=== PATIENT | male | born 1965 | race Caucasian/White ===

== ENCOUNTER 2018-11-01 00:47 | Emergency (ER) | payer BC ==
[2018-11-01] MEDS ORDERED: DIPHTH,PERTUSS(ACELL),TET TOX 0.5 ML DISP.SYRIN. VAX IM ONE ×2 (02:20→02:21)
[2018-11-01] MEDS ORDERED: HYDROcodon/IBUPROFEN 7.5/200MG 1 TAB TABLET ONE ×2 (02:20)
--- NOTE | 2018-11-01 05:51 | ED.ADGEN ---
Adult General Chief Complaint Chief Complaint ".. I was taking my dog out . Mark Anthony Arana.. it was not the dog fault.... .. and I slipped and landed really hard on this Lt. arm... It really idania tender and swollen..." HPI HPI Patient is a 53 year old male who presents with above history and complaints of fall and contusion to left forearm. Patient has obvious a significant hematoma to left forearm. Distal neurovascular intact. Avionics Technician is good. Capillary refill in fingers is equal to left hand. Pronation and supination does not elicit pain. Flexion at the elbow does not elicit pain. Patient denies any upper arm tenderness or other areas of injury other than abrasions to hands. Patient is not on any anticoagulants. Patient fall was at approximately 00 30 minutes. Patient is right-hand dominant. Patient normally healthy. Patient does not remember his last tetanus but is in excess of 10 years. Review of Systems Review of Systems Constitutional: Denies fever or chills [] Eyes: Denies change in visual acuity, redness, or eye pain [] HENT: Denies nasal congestion or sore throat [] Respiratory: Denies cough or shortness of breath [] Cardiovascular: No additional information not addressed in HPI [] GI: Denies abdominal pain, nausea, vomiting, bloody stools or diarrhea [] : Denies dysuria or hematuria [] Musculoskeletal: Denies back pain or joint pain []except findings in left forearm Integument: Denies rash or skin lesions [] Neurologic: Denies headache, focal weakness or sensory changes [] Endocrine: Denies polyuria or polydipsia [] All other systems were reviewed and found to be within normal limits, except as documented in this note. Family History Family History Noncontributory Current Medications Current Medications Current Medications Medications (Trade) Dose Ordered Sig/Megan Start Time Stop Time Status Last Admin Dose Admin Diphtheria/ Tetanus/Acell Pertussis (Boostrix) 0.5 ml STK-MED ONCE 11/01/18 02:20 11/01/18 04:53 DC Hydrocodone Bitartrate/ Ibuprofen (Vicoprofen 7.5-200) 1 tab STK-MED ONCE 11/01/18 02:20 11/01/18 04:53 DC Allergies Allergies No known drug allergies Physical Exam Physical Exam Constitutional: Well developed, well nourished, no acute distress, non-toxic appearance. [] HENT: Normocephalic, atraumatic, bilateral external ears normal, oropharynx moist, no oral exudates, nose normal. [] Eyes: PERRLA, EOMI, conjunctiva normal, no discharge. [] Neck: Normal range of motion, no tenderness, supple, no stridor. [] Cardiovascular:Heart rate regular rhythm, no murmur [] Lungs & Thorax: Bilateral breath sounds equal at apex on auscultation [] Abdomen: Bowel sounds normal, soft, no tenderness, no masses, no pulsatile masses. [] Skin: Warm, dry, no erythema, no rash. [] Back: No tenderness, no CVA tenderness. [] Extremities: No tenderness, no cyanosis, no clubbing, ROM intact, no edema. [] Except findings of contusion left forearm as per history of present illness Neurologic: Alert and oriented X 3, normal motor function, normal sensory function, no focal deficits noted. [] Psychologic: Affect anxious, judgement normal, mood normal. [] EKG EKG [] Radiology/Procedures Radiology/Procedures My interpretation of forearm x-ray shows no obvious fracture dislocation. Does have findings of soft tissue edema.[] Course & Med Decision Making Course & Med Decision Making Pertinent Labs and Imaging studies reviewed. (See chart for details). Patient to keep left forearm elevated. Ice packs as needed. No moist heat after 3 days. Do not put a ring back on left finger until forearm edema has resolved. May take Tylenol and ibuprofen for pain. If any findings of decreased sensitivity or marked increase in edema will need a re-exam. Apply Polysporin to abrasions 4 times a day until healed. Discussed risk of compartment syndrome. Follow-up primary care. Return if any concerns. [] Final Impression Final Impression 1 . Contusion to left forearm[] 2. Abrasion to hands Dragon Disclaimer Dragon Disclaimer This electronic medical record was generated, in whole or in part, using a voice recognition dictation system. Dragon Disclaimer This chart was dictated in whole or in part using Voice Recognition software in a busy, high-work load, and often noisy Emergency Department environment. It may contain unintended and wholly unrecognized errors or omissions. Discharge Summary Visit Information Final Diagnosis Problems Medical Problems: (1) Contusion Status: Acute Brief Hospital Course Brief Hospital Course Mr. Louis is a 53 old male who presented with contusion to lt forearm. No displaced fracture noted on film. Discharge Information Condition at Discharge: Stable Disposition/Orders: D/C to Home Dischare Medications Current Medications Hydrocodone Bitartrate/ Ibuprofen (Vicoprofen 7.5-200) 1 tab STK-MED ONCE .ROUTE ; Start 11/01/18 at 02:20; Stop 11/01/18 at 04:48; Status DC Diphtheria/ Tetanus/Acell Pertussis (Boostrix) 0.5 ml STK-MED ONCE VAX IM ; Start 11/01/18 at 02:21; Stop 11/01/18 at 04:48; Status DC Diphtheria/ Tetanus/Acell Pertussis (Boostrix) 0.5 ml STK-MED ONCE VAX IM ; Start 11/01/18 at 02:20; Stop 11/01/18 at 04:53; Status DC Hydrocodone Bitartrate/ Ibuprofen (Vicoprofen 7.5-200) 1 tab STK-MED ONCE .ROUTE ; Start 11/01/18 at 02:20; Stop 11/01/18 at 04:53; Status DC JANNET DEE MD Nov 01, 2018 05:51
--- NOTE | 2018-11-02 14:45 | RAD ---
EXAM: Left forearm, 2 views. HISTORY: Fall. COMPARISON: None. FINDINGS: 2 views of the left forearm are obtained. There is no fracture, dislocation or subluxation. There is no elbow effusion. There is benign osseous excrescence along the lateral epicondyle. IMPRESSION: No acute osseous finding. Electronically signed by: Miriam Freeman MD (11/02/2018 2:43 PM) [id number]
== END 2018-11-01 02:27 | disposition home or self-care (01) ==
LOC: ER 00:47
DX: S50.12XA Contusion of left forearm, initial encounter (principal); S60.512A Abrasion of left hand, initial encounter; S60.511A Abrasion of right hand, initial encounter; W01.0XXA Fall on same level from slipping, tripping and stumbling without subsequent striking against object, initial encounter; Y93.K1 Activity, walking an animal; Y92.89 Other specified places as the place of occurrence of the external cause; Y99.8 Other external cause status
CPT/HCPCS: 73090; 90471; 90715; 99283

== ENCOUNTER 2019-11-19 20:51 | Emergency (ER) | payer BC ==
[~2019-11-19] VITALS: Ht 175.3 cm; Wt 93.9 kg
--- NOTE | 2019-11-19 21:55 | PHYS DOC ---
Past History Past Medical History: No Pertinent History Past Surgical History: Other Additional Past Surgical Histo: ROTATOR CUFF Alcohol Use: Occasionally Adult General Chief Complaint Chief Complaint: HEADACHE HPI HPI Patient is a 54-year-old male presented to ER today for evaluation of headache for the bilateral lateral temporal frontal area, behind his eyes off and on for several day. Patient described the pain as throbbing in nature, pressure. Patient said it is not the worse headache of his life. No blurry vision, no neck pain, no head trauma. Patient denies any fever, no nausea vomiting. he has history of hypertension in the past, he was on medication for a long time, however his blood pressure had been normalized, so he had not been on any medication for several years now. Patient said he checked his blood pressure today and it constantly around 160/90. Patient denies any chest pain, no trouble breathing. He denies any abdominal pain. Review of Systems Review of Systems Constitutional: Denies fever or chills [] Eyes: Denies change in visual acuity, redness, or eye pain [] HENT: Denies nasal congestion or sore throat [] Respiratory: Denies cough or shortness of breath [] Cardiovascular: No additional information not addressed in HPI [] GI: Denies abdominal pain, nausea, vomiting, bloody stools or diarrhea [] : Denies dysuria or hematuria [] Musculoskeletal: Denies back pain or joint pain [] Integument: Denies rash or skin lesions [] Neurologic: Positive for headache, NO focal weakness or sensory changes [] Endocrine: Denies polyuria or polydipsia [] All other systems were reviewed and found to be within normal limits, except as documented in this note. Current Medications Current Medications Current Medications Medications (Trade) Dose Ordered Sig/Megan Start Time Stop Time Status Last Admin Dose Admin Benztropine Mesylate (Cogentin) 2 mg 1X ONCE 11/19/19 22:00 11/19/19 22:01 Diphenhydramine HCl (Benadryl) 50 mg 1X ONCE 11/19/19 22:00 11/19/19 22:01 11/19/19 21:39 50 MG Metoclopramide HCl (Reglan Vial) 10 mg 1X ONCE 11/19/19 22:00 11/19/19 22:01 11/19/19 21:40 10 MG Allergies Allergies Allergies Coded Allergies Type Severity Reaction Last Updated Verified No Known Drug Allergies 11/19/19 No Physical Exam Physical Exam Constitutional: Well developed, well nourished, no acute distress, non-toxic appearance. [] HENT: Normocephalic, atraumatic, bilateral external ears normal, oropharynx moist, no oral exudates, nose normal. [] Eyes: PERRLA, EOMI, conjunctiva normal, no discharge. [] Neck: Normal range of motion, no tenderness, supple, no stridor. [] Cardiovascular:Heart rate regular rhythm, no murmur [] Lungs & Thorax: Bilateral breath sounds clear to auscultation [] Abdomen: Bowel sounds normal, soft, no tenderness, no masses, no pulsatile masses. [] Skin: Warm, dry, no erythema, no rash. [] Back: No tenderness, no CVA tenderness. [] Extremities: No tenderness, no cyanosis, no clubbing, ROM intact, no edema. [] Neurologic: Alert and oriented X 3, normal motor function, normal sensory function, no focal deficits noted. [] Psychologic: Affect normal, judgement normal, mood normal. [] Current Patient Data Vital Signs Vital Signs Date Time Temp Pulse Resp B/P (MAP) Pulse Ox O2 Delivery O2 Flow Rate FiO2 11/19/19 21:00 97.8 84 20 150/99 (116 99 Room Air EKG EKG [] Radiology/Procedures Radiology/Procedures [][address] [address] IMAGING REPORT Signed PATIENT: VITALY SINGER ACCOUNT: [id number] : 1965 LOCATION: ER AGE: 54 SEX: M EXAM STATUS: REG ER ORD. PHYSICIAN: BEATRIZ GALLAGHER DO REASON: headache for several days, hypertension, [place] TREMORS PROCEDURE: CT HEAD WO CONTRAST Exam: CT head INDICATION: Headache TECHNIQUE: Sequential axial images through the head were obtained without the administration of IV contrast. Comparisons: None FINDINGS: No focal parenchymal lesion or hemorrhage is identified. There is no midline shift or sulcal effacement. No acute vascular territory infarction is identified. Nicholson-white distinction is preserved. The ventricular system is within normal limits without compression hydrocephalus. The basal cisterns are well maintained. The visualized portions of the paranasal sinuses and mastoid air cells are well-pneumatized. No acute fractures. IMPRESSION: No acute intracranial abnormality. Exposure: One or more of the following in the visualized dose reduction techniques were utilized for this examination: 1. Automated exposure control 2. Adjustment of the MA and/or KV according to patient size Use of iterative of reconstructive technique Electronically signed by: Jhonathan Junior MD (11/19/2019 10:16 PM) [id number] DICTATED AND SIGNED BY: JHONATHAN JUNIOR MD DATE: 11/19/192215 CC: MYRA COTTO; BEATRIZ GALLAGHER DO ~ Course & Med Decision Making Course & Med Decision Making Pertinent Labs and Imaging studies reviewed. (See chart for details) Patient was given medication in the ER, iv benadryl and iv reglan. Patient became very restless possible reaction to reglan. He was given iv cogentin. He felt much better. His blood pressure improved. Patient will be discharged home. He will need to follow up with his family doctor for reevaluation this week about his blood pressure. He is amenable to plan of care. Dragon Disclaimer Dragon Disclaimer This electronic medical record was generated, in whole or in part, using a voice recognition dictation system. Departure Departure: Impression: Primary Impression: Headache Disposition: HOME, SELF-CARE Condition: STABLE Referrals: MYRA COTTO (PCP) FOLLOW UP WITH YOUR DOCTOR THIS WEEK FOR REEVALUATION. Patient Instructions: General Headache Without Cause Additional Instructions: Thank you for visiting our Emergency Department. We appreciate you trusting us with your care. If any additional problems come up don't hesitate to return to visit us. Please follow up with your primary care provider so they can plan additional care if needed and know about the problem that you had. If symptoms worsen come back to the Emergency Department. Any concerning symptoms that start such as chest pain, shortness of air, weakness or numbness on one side of the body, running high fevers or any other concerning symptoms return to the ER. BEATRIZ GALLAGHER DO Nov 19, 2019 21:55
[2019-11-19] MEDS ORDERED: diphenhydrAMINE 50 MG/ML VIAL IVP ONE (22:00)
[2019-11-19] MEDS ORDERED: BENZTROPINE 2 MG/2 ML AMPUL. IM ONE (22:00)
[2019-11-19] MEDS ORDERED: BENZTROPINE 2 MG/2 ML AMPUL. IV ONE (22:00)
[2019-11-19] MEDS ORDERED: METOCLOPRAMIDE HCL 10 MG/2 ML VIAL. IVP ONE (22:00)
--- NOTE | 2019-11-19 22:19 | RAD ---
Exam: CT head INDICATION: Headache TECHNIQUE: Sequential axial images through the head were obtained without the administration of IV contrast. Comparisons: None FINDINGS: No focal parenchymal lesion or hemorrhage is identified. There is no midline shift or sulcal effacement. No acute vascular territory infarction is identified. Nicholson-white distinction is preserved. The ventricular system is within normal limits without compression hydrocephalus. The basal cisterns are well maintained. The visualized portions of the paranasal sinuses and mastoid air cells are well-pneumatized. No acute fractures. IMPRESSION: No acute intracranial abnormality. Exposure: One or more of the following in the visualized dose reduction techniques were utilized for this examination: 1. Automated exposure control 2. Adjustment of the MA and/or KV according to patient size Use of iterative of reconstructive technique Electronically signed by: Jhonathan Nash MD (11/19/2019 10:16 PM) [id number]
[2019-11-19 23:30] VITALS: BP 128/85
== END 2019-11-19 23:42 | disposition home or self-care (01) ==
LOC: ER 20:51
DX: R51 Headache (principal); I10 Essential (primary) hypertension
CPT/HCPCS: 70450; 96374; 96375; 99284; J0515; J1200; J2765

== ENCOUNTER → 2020-12-03 | Outpatient (CLI) | payer BC ==
--- NOTE | 2020-12-03 12:14 | CARD ---
MR#: [id number] Date of Study: 12/03/2020 Ordering Physician: UVALDO BARTHOLOMEW, Referring Physician: UVALDO BARTHOLOMEW, Tech: Alysa Santamaria ONIEL APPROVED REPORT EXAM: Two-dimensional and M-mode echocardiogram with Doppler and color Doppler. Other Information Quality : Good INDICATION Hypertension/HCVD 2D DIMENSIONS RVDd2.7 (2.9-3.5cm)Left Atrium(2D)3.2 (1.6-4.0cm) IVSd0.9 (0.7-1.1cm)Aortic Root(2D)3.2 (2.0-3.7cm) LVDd5.1 (3.9-5.9cm)LVOT Diameter2.1 (1.8-2.4cm) PWd1.0 (0.7-1.1cm)LVDs4.1 (2.5-4.0cm) FS (%) 30.0 %SV50.7 ml LVEF(%)60.0 (>50%) Aortic Valve AoV Peak Nathen.133.6cm/sAoV VTI24.1cm AO Peak GR.7.1mmHgLVOT Peak Nathen.120.3cm/s LVOT VTI 19.93cmAO Mean GR.4mmHg LINDA (VMAX)3.06sy5YNL (VTI)2.96cm2 Mitral Valve MV E Scfbnejv21.5cm/sMV DECEL [id number] MV A Hdkvqsqw26.3cm/sE/A Ratio0.7 Pulmonary Vein S1 Gkjngeru91.5cm/sD2 Vimaeqyu73.8cm/s LEFT VENTRICLE The left ventricle is normal size. There is normal left ventricular wall thickness. The left ventricu lar systolic function is normal and the ejection fraction is within normal range. The Ejection Fracti on is 55-60%. There is normal LV segmental wall motion. Transmitral Doppler flow pattern is Grade I-a bnormal relaxation pattern. RIGHT VENTRICLE The right ventricle is normal size. There is normal right ventricular wall thickness. The right ventr icular systolic function is normal. ATRIA The left atrium size is normal. The right atrium size is normal. The interatrial septum is intact wit h no evidence for an atrial septal defect or patent foramen ovale as noted on 2-D or Doppler imaging. AORTIC VALVE The aortic valve is normal in structure and function. Doppler and Color Flow revealed no significant aortic regurgitation. There is no significant aortic valvular stenosis. MITRAL VALVE The mitral valve is normal in structure and function. There is no evidence of mitral valve prolapse. There is no mitral valve stenosis. Doppler and Color Flow revealed no mitral valve regurgitation note d. TRICUSPID VALVE The tricuspid valve is normal in structure and function. Doppler and Color Flow revealed no tricuspid valve regurgitation noted. There is no tricuspid valve stenosis. PULMONIC VALVE The pulmonic valve is not well visualized. Doppler and Color Flow revealed no pulmonic valvular regur gitation. There is no pulmonic valvular stenosis. GREAT VESSELS The aortic root is normal in size. The ascending aorta is normal in size. The IVC is normal in size a nd collapses >50% with inspiration. PERICARDIAL EFFUSION There is no evidence of significant pericardial effusion. Critical Notification Critical Value: No <Conclusion> The left ventricular systolic function is normal and the ejection fraction is within normal range. Th e Ejection Fraction is 55-60%. There is normal LV segmental wall motion. Signed by : Uvaldo Bartholomew, Electronically Approved : 12/03/2020 12:14:19
== END ==
LOC: ECHO 07:58
PROVIDERS: ATTEND Internal Medicine Cardiovascular Disease
DX: I10 Essential (primary) hypertension (principal)
CPT/HCPCS: 93306